=== PATIENT | female | born 1950 | race Caucasian/White ===

== ENCOUNTER 2024-04-20 14:20 | Outpatient (CLI) | payer MEDICARE | END 2024-04-20 14:21 | disposition home or self-care (01) | LOC: CSHWCC 14:20 | PROVIDERS: ATTEND Nurse Practitioner Family | DX: L97.222 Non-pressure chronic ulcer of left calf with fat layer exposed (principal); L12.0 Bullous pemphigoid | CPT/HCPCS: 99212; G0463 ==